=== PATIENT | female | born 1970 ===

== ENCOUNTER 2017-07-16 01:16 | Emergency (ER) | payer OTHER, SELFPAY ==
[2017-07-16 01:36] VITALS: BP 134/86; PULSE 88; RESP 18; TEMP 98.1; O2SAT 97
[2017-07-16] MEDS ORDERED: Fluconazole 150 MG TAB PO ONE (02:17)
--- NOTE | 2017-07-16 02:17 | ED PDOC ---
HPI: Female Pain Time Seen by Provider: 07/16/17 01:20 Chief Complaint (Nursing): Female Genitourinary Chief Complaint (Provider): Vaginitis History Per: Patient Additional Complaint(s): 46 yo female, no PMH, Complains of burning and itching pain to vulva and vaginal area since Wednesday, worsened tonight. Denies any Vaginal discharge. Past Medical History Reviewed: Nursing Documentation, Vital Signs Vital Signs: Last Vital Signs Temp 98.1 F 07/16/17 01:32 Pulse 88 07/16/17 01:32 Resp 18 07/16/17 01:32 BP 134/86 07/16/17 01:32 Pulse Ox 97 07/16/17 01:32 - Medical History PMH: No Chronic Diseases - Surgical History Surgical History: No Surg Hx - Family History Family History: States: No Known Family Hx - Living Arrangements Living Arrangements: With Family - Social History Current smoker - smoking cessation education provided: No Alcohol: None Drugs: Denies - Allergies Allergies/Adverse Reactions: Allergies Allergy/AdvReac Type Severity Reaction Status Date / Time No Known Allergies Allergy Verified 07/16/17 01:32 Review of Systems ROS Statement: Except As Marked, All Systems Reviewed And Found Negative Genitourinary Female: Positive for: Vaginal Discharge Physical Exam - Reviewed Nursing Documentation Reviewed: Yes Vital Signs Reviewed: Yes - Physical Exam Appears: Positive for: Well, Non-toxic, No Acute Distress Head Exam: Positive for: ATRAUMATIC, NORMAL INSPECTION, NORMOCEPHALIC Skin: Positive for: Normal Color, Warm, DRY Eye Exam: Positive for: EOMI, Normal appearance, PERRL ENT: Positive for: Normal ENT Inspection Neck: Positive for: Normal, Painless ROM Cardiovascular/Chest: Positive for: Regular Rate, Rhythm Respiratory: Positive for: CNT, Normal Breath Sounds Gastrointestinal/Abdominal: Positive for: Normal Exam, Bowel Sounds, Soft Pelvic Exam: Positive for: External Exam Normal, Discharge (thick white vaginal discharge, erythema to introitus). Negative for: Speculum Exam Normal Back: Positive for: Normal Inspection Extremity: Positive for: Normal ROM Neurologic/Psych: Positive for: Alert, Oriented - ECG O2 Sat by Pulse Oximetry: 97 Medical Decision Making Medical Decision Making: Medicated with Diflucan PO Disposition - Clinical Impression Clinical Impression: Vaginitis - Patient ED Disposition Is Patient to be Admitted: No - Disposition Disposition: Routine/Home Disposition Time: 02:24 Condition: STABLE Forms: [facility] (Ukrainian) - POA Present On Arrival: None
== END 2017-07-16 02:51 | disposition home or self-care (01) ==
LOC: H.ER 01:16
DX: N76.0 Acute vaginitis (principal)

== ENCOUNTER 2017-07-23 14:46 | Emergency (ER) | payer OTHER ==
[2017-07-23 14:58] VITALS: BP 132/86; PULSE 89; RESP 16; TEMP 98.1; O2SAT 16
[2017-07-23] MEDS ORDERED: Fluconazole 150 MG TAB PO STA (15:42)
--- NOTE | 2017-07-23 15:53 | ED PDOC ---
HPI: Female Pain Time Seen by Provider: 07/23/17 15:01 Chief Complaint (Nursing): Female Genitourinary Chief Complaint (Provider): Itching and Pain to External Genitalia History Per: Patient History/Exam Limitations: no limitations Onset/Duration Of Symptoms: Days Current Symptoms Are (Timing): Still Present Additional Complaint(s): Angela Ascencio, a 46 year old female presents to the ED with itching and pain to her external genitalia x1 week. The patient states that she was seen by a doctor and prescribed diflucan and a topical anti-fungal which she states offered relief for a few days. She reports that no cultures were taken at that time. The patient states that her symptoms are now back. She reports thats he got her menses 2 days ago. Past Medical History Reviewed: Historical Data, Nursing Documentation, Vital Signs Vital Signs: Last Vital Signs Temp 98.1 F 07/23/17 14:55 Pulse 89 07/23/17 14:55 Resp 16 07/23/17 14:55 BP 132/86 07/23/17 14:55 Pulse Ox 16 L 07/23/17 14:55 - Medical History PMH: No Chronic Diseases - Family History Family History: States: No Known Family Hx - Home Medications Home Medications: Ambulatory Orders Medication Instructions Recorded Metronidazole [Metrogel-Vaginal] 1 ea VG HS #5 gel 07/16/17 - Allergies Allergies/Adverse Reactions: Allergies Allergy/AdvReac Type Severity Reaction Status Date / Time No Known Allergies Allergy Verified 07/23/17 14:55 Review of Systems ROS Statement: Except As Marked, All Systems Reviewed And Found Negative Genitourinary Female: Positive for: Other (Irritation and pain to external genitalia) Physical Exam - Reviewed Nursing Documentation Reviewed: Yes Vital Signs Reviewed: Yes - Physical Exam Appears: Positive for: Non-toxic, No Acute Distress Head Exam: Positive for: ATRAUMATIC, NORMAL INSPECTION, NORMOCEPHALIC Skin: Positive for: Normal Color, Warm, Dry. Negative for: Rash Eye Exam: Positive for: Normal appearance, EOMI, PERRL Cardiovascular/Chest: Positive for: Regular Rate, Rhythm, Chest Non Tender. Negative for: Tachycardia Respiratory: Positive for: Normal Breath Sounds. Negative for: Accessory Muscle Use, Rales, Rhonchi, Wheezing, Respiratory Distress Pelvic Exam: Positive for: Blood (blood in vaginal canal and coming out of OS.) , Other (Irritation an rash on external genitals.). Negative for: External Exam Normal, No Cerv. Motion Tender Neurologic/Psych: Positive for: Alert, Oriented, Gait - ECG O2 Sat by Pulse Oximetry: 16 Medical Decision Making Medical Decision Makin Initial Impression: 46 year old female presenting with itching an pain to external genitalia Initial Plan: * Chlamydia/GC RNA, TMA * Benadryl 50mg PO * Diflucan 150mg PO * Motrin Tab 600mg PO * Genital Culture * Reevaluation Scribe Attestation Documented by Julianne Ribera acting as a scribe for Mona Erickson PA-C. Scribe Attestation All medical record entries made by the Scribe were at my direction and personally dictated by me. I have reviewed the chart and agree that the record accurately reflects my personal performance of the history, physical exam, medical decision making, and the department course for this patient. I have also personally directed, reviewed, and agree with the discharge instructions and disposition Disposition - Clinical Impression Clinical Impression: Vaginitis - Patient ED Disposition Is Patient to be Admitted: No Counseled Patient/Family Regarding: Studies Performed, Diagnosis - Disposition [facility]errals[facility]] Disposition: Routine/Home Disposition Time: 15:52 Condition: STABLE Additional Instructions: Please follow-up with MANAGER [facility] [employer]ARN[facility]. Instructions: Vaginitis (ED) Forms: [facility] (Croatian) Print Language: CITIZ[place]
== END 2017-07-23 16:15 | disposition home or self-care (01) ==
LOC: H.ER 14:46
DX: N76.0 Acute vaginitis (principal)

== ENCOUNTER 2017-07-26 08:47 | Emergency (ER) | payer OTHER ==
[2017-07-26 08:50] VITALS: TEMP 98.2; BMI 43.9
--- NOTE | 2017-07-26 09:26 | ED PDOC ---
HPI: Female Pain Time Seen by Provider: 07/26/17 09:05 Chief Complaint (Nursing): Female Genitourinary Chief Complaint (Provider): vaginal itching History Per: Oncology Radiation Physician ([id number]) History/Exam Limitations: no limitations Onset/Duration Of Symptoms: Days (10+), Gradual Quality Of Discomfort: Other (itch) Associated Symptoms: Urinary Symptoms. denies: Nausea, Vomiting, Diarrhea, Loss Of Appetite Alleviating Factors: None Additional Complaint(s): 46yo female c/o vaginal itching along for around 10 days now with dysuria. Denies fever, back pain, vaginal discharge or hematuria. Has been seen in ED x2 this month for similar complaints, although she states dysuria is new from prior visits. Denies hx STDs, states told by her [employer] she was in perimenopause. Prior chart and cultures reviewed, genital cx negative, Chlamydia pending. Past Medical History Reviewed: Historical Data, Nursing Documentation, Vital Signs Vital Signs: Last Vital Signs Temp 98.2 F 07/26/17 08:49 Pulse 69 07/26/17 08:49 Resp 20 07/26/17 08:49 BP 126/74 07/26/17 08:49 Pulse Ox 99 07/26/17 08:49 - Medical History PMH: No Chronic Diseases - Family History Family History: States: Unknown Family Hx - Living Arrangements Living Arrangements: With Family - Social History Current smoker - smoking cessation education provided: No - Home Medications Home Medications: Ambulatory Orders Medication Instructions Recorded Metronidazole [Metrogel-Vaginal] 1 ea VG HS #5 gel 07/16/17 Ciprofloxacin [Cipro] 250 mg PO BID #6 tab 07/26/17 Miconazole 2% [Miconazole 2% Cream] 30 applic TOP BID #1 tube 07/26/17 - Allergies Allergies/Adverse Reactions: Allergies Allergy/AdvReac Type Severity Reaction Status Date / Time No Known Allergies Allergy Verified 07/26/17 08:55 Review of Systems ROS Statement: Except As Marked, All Systems Reviewed And Found Negative Constitutional: Negative for: Fever, Chills Cardiovascular: Negative for: Chest Pain, Palpitations Respiratory: Negative for: Cough, Shortness of Breath Gastrointestinal: Negative for: Nausea, Vomiting, Abdominal Pain Genitourinary Female: Positive for: Dysuria, Frequency, Other (genital itching) . Negative for: Vaginal Discharge, Pelvic Pain Musculoskeletal: Negative for: Neck Pain, Shoulder Pain Skin: Negative for: Rash, Lesions, Jaundice Neurological: Negative for: Weakness, Numbness Psych: Negative for: Anxiety Physical Exam - Reviewed Nursing Documentation Reviewed: Yes Vital Signs Reviewed: Yes - Physical Exam Appears: Positive for: Well, Non-toxic Head Exam: Positive for: ATRAUMATIC Skin: Positive for: Normal Color, Warm, Dry Respiratory: Negative for: Respiratory Distress Gastrointestinal/Abdominal: Negative for: Tenderness, Guarding Pelvic Exam: Positive for: External Exam Normal, Other (trace white heterogenerous plaques). Negative for: Blood, Cervicitis, Discharge, Lesions, Ulcers Extremity: Positive for: Normal ROM Neurologic/Psych: Positive for: Oriented, Gait (normal). Negative for: Motor/ Sensory Deficits - ECG O2 Sat by Pulse Oximetry: 99 Pulse Ox Interpretation: Normal Medical Decision Making Medical Decision Making: Obtain UA/ Ucx Had genital cx last week LMP Jul 19 will treat empiric UTI given symptoms and Rx antigfungal (recd metrogel last visit). Explained findings via sign language interpreter and need for [employer] followup given persistent symptoms. Followup chlamydia testing sent prev. Followup Ucx tomr/wed. Disposition - Clinical Impression Clinical Impression: Vulvovaginal pruritus, Dysuria - Patient ED Disposition Is Patient to be Admitted: No Counseled Patient/Family Regarding: Studies Performed, Diagnosis, Need For Followup, Rx Given - Disposition [facility]errals: [facility] [Outside] Disposition: Routine/Home Disposition Time: 10:05 Condition: STABLE Additional Instructions: See [facility] for further treatment and testing. Return to ER for any worse or new symptoms. Prescriptions: Ciprofloxacin [Cipro] 250 mg PO BID #6 tab Miconazole 2% [Miconazole 2% Cream] 30 applic TOP BID #1 tube Instructions: Vulvovaginal Candidiasis (ED), Dysuria (ED) Forms: [facility] ([place]) Print Language: ENGLISH
[2017-07-26 10:00] LABS: RBC URINE 6 /hpf (0-3); URINE BILIRUBIN NEGATIVE (NEGATIVE); URINE BLOOD SMALL (NEGATIVE); URINE COLOR YELLOW (YELLOW); URINE GLUCOSE (UA) NEG (Normal); URINE KETONE NEGATIVE (NEGATIVE); URINE LEUKOCYTE ESTERASE NEG Leu/uL (Negative); URINE PROTEIN NEGATIVE (NEGATIVE); URINE UROBILINOGEN 0.2-1.0 mg/dL (0.2-1.0); WBC URINE 2 /hpf (0-5)
[2017-07-26 10:33] VITALS: BP 124/70; PULSE 66; RESP 16; O2SAT 98
== END 2017-07-26 10:50 | disposition home or self-care (01) ==
LOC: H.ER 08:47
DX: L29.2 Pruritus vulvae (principal)